=== PATIENT | male | born 2000 | race Caucasian/White ===

== ENCOUNTER 2019-03-04 02:47 | Emergency (ER) | payer OTHER ==
[2019-03-04 02:51] VITALS: BP 150/101
--- NOTE | 2019-03-04 02:55 | ER Report ---
History and Physical Time Seen By MD: 02:49 HPI/ROS CHIEF COMPLAINT: Right hand injury HISTORY OF PRESENT ILLNESS: 18-year-old intoxicated male presents ambulatory to the ER stating that he broke his finger. Patient has a history of a previous boxer's fracture. He punched a wall and he thinks he has again fractured his 4th metacarpal. Patient is an abrasion on his right index finger. He states his tetanus status is up-to-date. Patient shows decreased range of motion. Allergies: Coded Allergies: cetirizine (Verified Allergy, Intermediate, 03/04/19) Reviewed Nurses Notes: Yes Old Medical Records Reviewed: Yes Constitutional Vital Sign - Last 24 Hours 03/04/19 02:51 Temp 98.1 B/P (MAP) 150/101 Pulse Ox 93 Physical Exam General appearance: Alert no distress. Respiratory: Chest is non tender, lungs are clear to auscultation. Cardiac: Regular rate and rhythm Extremities: Examination of the right hand shows swelling in the midshaft portion of the 4th metacarpal., All digits are neurovascularly intact. There is significantly decreased range of motion. DIFFERENTIAL DIAGNOSIS: After history and physical exam differential diagnosis was considered for sprain, strain, fracture, dislocation, contusion Medical Decision Making EKG/Imaging Imaging X-ray: Right hand, 3 views was obtained. I viewed the images myself on the PACS system. My interpretation of the images is: Nondisplaced midshaft 4th metacarpal fracture. The radiologist interpretation had no clinically significant variation from this interpretation. ED Course/Re-evaluation ED Course Patient was admitted to an examination room. H&P was done. The differential diagnoses was considered. Examination of the right hand shows swelling and deformity. There is tenderness midshaft consistent with likely a boxer's fracture. Diagnostic x-rays confirm nondisplaced midshaft 4th metacarpal fracture. Patient's placed in a gutter splint by nursing staff. The splint was checked after its application. There is good capillary refill of the distal digits. Patient's cautioned to loosen the splint fits too tight. Patient advised to follow-up with [facility] for casting Decision to Disposition Date: March 04, 2019 Decision to Disposition Time: 03:29 Depart Departure Latest Vital Signs Vital Signs Date Time Temp Pulse Resp B/P (MAP) Pulse Ox O2 Delivery O2 Flow Rate FiO2 03/04/19 02:51 98.1 150/101 93 Impression: Primary Impression: Fracture, metacarpal Additional Impression: Alcohol intoxication Condition: Improved Disposition: HOME OR SELF-CARE Referrals: SEVERO JEAN MD Patient Instructions: Hand Fracture (ED) Additional Instructions: Take ibuprofen 200 mg 3 tablets 3 times a day, food Follow-up with [facility] [phone], address [address] Problem Qualifiers Primary Impression: Fracture, metacarpal Encounter type: initial encounter Metacarpal bone: fourth Fracture type: closed Metacarpal location: shaft Fracture alignment: nondisplaced Laterality: right Qualified Codes: S62.354A - Nondisplaced fracture of shaft of fourth metacarpal bone, right hand, initial encounter for closed fracture Additional Impression: Alcohol intoxication Complication of substance-induced condition: uncomplicated Qualified Codes: F10.920 - Alcohol use, unspecified with intoxication, uncomplicated GIBSON HANNON DO March 04, 2019 02:55
--- NOTE | 2019-03-04 03:39 | RADIOLOGY IMAGING REPORT ---
FACILITY: [facility] - [place] PATIENT NAME: Lb Gomez : 2000 MR: [id number] V: [id number] EXAM DATE: ORDERING PHYSICIAN: GIBSON HANNON TECHNOLOGIST: Location: Patient: Lb Gomez : 2000 Visit/Account:[id number] Date of Sevice: 03/04/2019 INDICATION: Punched a wall, right hand injury. EXAM DATE: 03/04/2019 2:55 AM COMPARISON: None. FINDINGS: 3 views right hand. Mineralization is normal. Nondisplaced transverse fracture through the midportio n of the 4th metacarpal diaphysis. Soft tissues are unremarkable. IMPRESSION: Nondisplaced fracture through the midportion of the right 4th metacarpal diaphysis. Report Dictated By: Jerome Byers MD at 03/04/2019 3:33 AM Report E-Signed By: Jerome Byers MD at 03/04/2019 3:34 AM WSN:[id number]
[2019-03-04] MEDS ORDERED: OMEP-125 PO (07:38)
== END 2019-03-04 04:01 | disposition home or self-care (01) ==
LOC: ER 02:55
DX: S62.354A Nondisplaced fracture of shaft of fourth metacarpal bone, right hand, initial encounter for closed fracture (principal); F10.920 Alcohol use, unspecified with intoxication, uncomplicated; W22.09XA Striking against other stationary object, initial encounter
CPT/HCPCS: 99283